=== PATIENT | male | born 1970 | race Caucasian/White ===

== ENCOUNTER 2022-08-25 10:25 | Day surgery (SDC) | payer OTHER, SELFPAY ==
--- NOTE | 2022-08-25 | PATH_ITS ---
[facility] Accession Number: [id number] No. of containers..01 Tissue . 01 Material submitted: . sigmoid colon - SIGMOID POLYP . 01 Diagnosis: Sigmoid Colon, Polypectomy: Tubular adenoma. MRV 09/01/2022 1242 Local . 01 Electronically signed: . Monet Costello MD, Pathologist NPI- [id number] . 01 Gross description: . The specimen is received in formalin labeled with the patient's name, , and sigmoid polyp, and consists of multiple brice soft tissue fragments aggregating to 1.8 x 0.7 x 0.2 cm. The specimen is filtered and submitted entirely in cassette A1. ([id number]) /R 08/28/2022 1720 Local . 01 Pathologist provided ICD-10: D12.5 . 01 CPT . 783085 Specimen Comment: A courtesy copy of this report has been sent to [phone] Performed at: 01 [facility] [address] [place] [address], [place], [place] [id number] MD Sajan Cabezas MD Phone: [phone]
[2022-08-25 10:44] VITALS: BP 130/87; PULSE 7; TEMP 36.3; BMI 25.8
[2022-08-25] MEDS: LACTATED RINGERS 1,000 ML 125 ML IV (10:54)
--- NOTE | 2022-08-25 11:10 | PM.HP.1 ---
History of Present Illness History of Present Illness Date Patient Seen: 08/25/22 Chief complaint: SDC Narrative: First screening colonoscopy [facility] Surgical History (Updated 08/25/22 @ 10:44 by Ruben Tripp RN) H/O adenoidectomy History of surgery on arm Social History household members: spouse Smoking Status: Never smoker alcohol intake: current Meds Home Medications and Allergies Allergies Allergy/AdvReac Type Severity Reaction Status Date / Time No Known Drug Allergies Allergy Verified 08/25/22 10:43 Exam Vital Signs (past 8 hours): - 08/25/22 10:44 Temperature 97.4 F L Pulse Rate 7 L Blood Pressure 130/87 Oxygen Delivery Method Room Air Oxygen Delivery Method Room Air Narrative Exam Narrative: Oropharynx free of lesions Chest clear to auscultation percussion Cardiac exam reveals no S3 or murmur Assessment & Plan Assessment & Plan narrative: For screening colonoscopy. Risks, benefits, alternatives have been explained.
--- NOTE | 2022-08-25 11:11 | PM.OP.COLON ---
Operative Date/Time/Diagnoses Date of procedure: 08/25/22 Pre-op diagnosis: See indication and findings Procedure & Clinicians Study performed: Colonoscopy Indications: 1st screening Surgeon: Vandana Mcknight Procedure Notes Procedure in detail: After informed consent was obtained the patient was placed in left lateral decubitus position. The video colonoscope was introduced the rectum slowly advanced cecum. Preparation was only fair with numerous seeds. On slow withdrawal mucosa was carefully examined. The scope was removed. The patient tolerated procedure well. Blood loss none Complications none Sedation mac Findings 1. Relatively poor prep particularly on the right side 2. 10 mm pedunculated polyp in the distal sigmoid hot snared and removed completely 3. Otherwise negative colonoscopy to cecum Given the prep and the finding of a medium-size polyp he should have follow-up colonoscopy in 1 year with a better preparation.
[2022-08-25 11:50] VITALS: BP 97/62; PULSE 60; RESP 13; TEMP 36.2; O2SAT 95
[2022-08-25 11:55] VITALS: BP 99/62; PULSE 60; RESP 16; O2SAT 97
[2022-08-25 12:00] VITALS: BP 103/68; PULSE 60; RESP 15; O2SAT 99
[2022-08-25 12:15] VITALS: BP 108/76; PULSE 66; RESP 19; TEMP 36.4; O2SAT 100
== END 2022-08-25 12:25 | disposition home or self-care (01) ==
PROVIDERS: PCP Family Medicine; Referring Provider Internal Medicine Gastroenterology; Visit Provider Internal Medicine Gastroenterology
PROC: 0DJD8ZZ Inspection of Lower Intestinal Tract, Via Natural or Artificial Opening Endoscopic (ICD-10-PCS; CPT 45378; principal; 2022-08-25 11:30)
DX: K63.5 Polyp of colon (principal); Z12.11 Encounter for screening for malignant neoplasm of colon
CPT/HCPCS: 45385; J2704

== ENCOUNTER 2023-03-30 13:52 | Day surgery (SDC) | payer OTHER, SELFPAY ==
--- NOTE | 2023-03-30 | PATH_ITS ---
[facility] Accession Number: [id number] No. of containers..01 Tissue . 01 Material submitted: . splenic flexure - SPLENIC POLYP . 01 Diagnosis: SPLENIC FLEXURE POLYP: Tubular adenoma. [facility] 04/01/2023 1148 Local . 01 Electronically signed: . Aníbal Carmona MD, PhD, Pathologist NPI- [id number] . 01 Gross description: . SPLENIC POLYP: Received in formalin is 1 fragment(s) of brice, soft tissue measuring 0.3 x 0.3 x 0.2 cm submitted entirely in 1 cassette(s) /AAY 03/31/2023 0453 Local . 01 Pathologist provided ICD-10: D12.3 . 01 CPT . 506514 Specimen Comment: A courtesy copy of this report has been sent to [phone] Performed at: 01 [facility] [address] [place] [address], [place], [place] [id number] MD Sajan Cabezas MD Phone: [phone]
--- NOTE | 2023-03-30 14:05 | PM.HP.1 ---
History of Present Illness History of Present Illness Date Patient Seen: 03/30/23 Chief complaint: SDC Narrative: History of colon polyps with last colonoscopy having a poor prep need for follow-up. [facility] Surgical History (Updated 08/25/22 @ 10:44 by Ruben Tripp RN) H/O adenoidectomy History of surgery on arm Social History household members: spouse Smoking Status: Never smoker alcohol intake: current Meds Home Medications and Allergies Allergies Allergy/AdvReac Type Severity Reaction Status Date / Time No Known Drug Allergies Allergy Verified 08/25/22 10:43 Exam Narrative Exam Narrative: Oropharynx free of lesions Chest clear to auscultation percussion Cardiac exam reveals no S3 or murmur Assessment & Plan Assessment & Plan narrative: History of polyps with history of poor prep. Risks benefits alternatives have been explained for colonoscopy.
--- NOTE | 2023-03-30 14:06 | PM.OP.COLON ---
Operative Date/Time/Diagnoses Date of procedure: 03/30/23 Pre-op diagnosis: See indication and findings Procedure & Clinicians Study performed: Colonoscopy Indications: History of colon polyps and last colonoscopy with poor prep Surgeon: Vandana Mcknight Procedure Notes Procedure in detail: After informed consent was obtained the patient was placed in left lateral decubitus position. Video colonoscope was introduced into the rectum slowly advanced cecum. Preparation was good. On slow withdrawal mucosa was carefully examined. The scope was removed. The patient tolerated procedure well. Blood loss none Complications none Sedation mac Findings 1. 5 x 10 mm sessile polyp at the splenic flexure removed completely and retrieved using hot snare 2. Sigmoid diverticulosis mild 3. Otherwise negative colonoscopy to cecum 4. Colon prep was still not quite as good as it should have been. Patient should have follow-up colonoscopy in 5 years and have an extra dose of medication and or a 2 day prep.
[2023-03-30] MEDS: LACTATED RINGERS 1,000 ML 100 ML IV (14:09)
[2023-03-30 14:14] VITALS: BP 140/82; PULSE 50; RESP 16; TEMP 37.1; O2SAT 100
[2023-03-30 15:13] VITALS: BP 103/73; PULSE 50; RESP 18; TEMP 37.1; O2SAT 96
[2023-03-30 15:16] VITALS: BP 108/73; PULSE 50; RESP 16; TEMP 37; O2SAT 97
[2023-03-30 15:22] VITALS: BP 138/83; PULSE 50; RESP 16; O2SAT 99
--- NOTE | 2023-03-30 16:18 | SUR.PHASEII ---
pt's iv dc'd intact with no signs of infiltration.
== END 2023-03-30 15:45 | disposition home or self-care (01) ==
PROVIDERS: PCP Family Medicine; Referring Provider Internal Medicine Gastroenterology; Visit Provider Internal Medicine Gastroenterology
PROC: 0DJD8ZZ Inspection of Lower Intestinal Tract, Via Natural or Artificial Opening Endoscopic (ICD-10-PCS; CPT 45378; principal; 2023-03-30 14:30)
DX: Z12.11 Encounter for screening for malignant neoplasm of colon (principal); Z86.010 Personal history of colon polyps; K57.30 Diverticulosis of large intestine without perforation or abscess without bleeding; D12.4 Benign neoplasm of descending colon
CPT/HCPCS: 45385; J2704